=== PATIENT | female | born 1950 | race Caucasian/White ===

== ENCOUNTER 2025-03-15 08:23 | Outpatient (AMB) | payer MEDICARE, SELFPAY ==
--- OUTSIDE RECORDS SUMMARY | 2025-03-15 09:15 | XMS_ITS | Clinical Summary ---
Author Organization [facility] Address [address] [place] [address] Phone Care Team Providers Care Bacteriologist Dairy Name Role Phone Romaine Hudson MD Primary Care Provider [phone] Allergies Active Allergy Reactions Criticality Noted Date Comments Diclofenac Other High 05/23/2019 GI Bleed Morphine Other High 05/23/2019 GI Upset Medications atenoloL (TENORMIN) 25 mg tablet Take 0.5 tablets (12.5 mg total) by mouth 1 (one) time each day. TAKE 1/2 TABLET BY MOUTH DAILY Active multivit-minera ls/folic acid (CENTRUM ADULTS ORAL) Take 1 Tab by mouth daily. Active HYDROCODONE-MESERET TAMINOPHEN ORAL Take by mouth as needed. Active celecoxib (CeleBREX) 200 mg capsule Take 1 Capsule by mouth 2 times daily Active blood pressure test kit-large kit 1 Units by Does not apply route daily. Active acetaminophen (TYLENOL) 325 mg tablet Take 650 mg by mouth every 6 hours as needed. Active sertraline (ZOLOFT) 100 mg tablet Take 1 tablet (100 mg total) by mouth 1 (one) time each day. 90 tablet 08/17/2024 Active lisinopril-hydr oCHLOROthiazide (PRINZIDE,ZESTO RETIC) 20-12.5 mg per tablet Take 1 tablet by mouth 1 (one) time each day. Take 1 Tablet by mouth daily for 180 days. 90 tablet 09/21/2024 Active pravastatin (PRAVACHOL) 40 mg tablet Take 1 tablet (40 mg total) by mouth at bedtime. 90 tablet 09/21/2024 Active levothyroxine (SYNTHROID, LEVOTHROID) 125 mcg tablet Take 1 tablet by mouth daily on Sun, Tue, Thurs and Sat. 48 tablet 09/21/2024 Active levothyroxine (SYNTHROID, LEVOTHROID) 150 mcg tabletIndicatio ns:hypothyroidi sm Take 1 tablet by mouth daily on Mon, Wed, Fri 36 tablet 09/21/2024 Active Active Problems Problem Noted Date Diagnosed Date Anxiety and depression 04/12/2024 Essential (primary) hypertension 04/12/2024 Hypothyroidism 04/12/2024 Mixed hyperlipidemia 04/12/2024 OA (osteoarthritis) of neck 04/12/2024 OPAL (obstructive sleep apnea) 04/12/2024 Immunizations Name Administration Dates Next Due Influenza Quadravalent, 0.5m l (Fluzone High-dose) 65yo and older 06/09/2023 Influenza trivalent, 0.5mL ( Fluad) 65yo and older 05/02/2024 Influenza, Unspecified 04/07/2022,04/15/2021 Moderna SARS-CoV-2 COVID-19, mRNA, LNP-S, preservative free 06/09/2023,04/07/2022,04/24/2021 Pneumococcal Conjugate 06/02/2023 Pneumococcal conjugate 20 va lent (Prevnar 20, PCV 20) 2mo and older 05/02/2024 Tdap Tetanus diptheria acell ular pertussis (Boostrix; Adacel) 7yo and older 08/31/2023 Zoster recombinant (Shingrix ) 19yo and older 09/26/2020,09/05/2020 Surgical History Surgery Date Site/Laterality Comments BACK SURGERY PROCEDURE: HISTORICAL BACK SURGERY Medical History Medical History Date Comments Hypothyroidism DX:Hypothyroidis m Mixed hyperlipidemia DX:Mixed hy perlipidemia Anxiety and depression DX:Anxiet y and depression Essential (primary) hypertension DX:Essential (primary) hypertension OA (osteoarthritis) of neck DX:O A (osteoarthritis) of neck; COMMENT: shoulder and wrist OPAL (obstructive sleep apnea) DX :OPAL (obstructive sleep apnea) Family History Medical History Relation Name Comments Liver disease Brother 59 yo No Known Problems Daughter Lung cancer Father Alzheimer's disease Mother No Known Problems Sister No Known Problems Son 1 No Known Problems Son 2 Relation Name Status Comments Brother 59 yo Daughter Alive Father Mother Sister Alive Son 1 Alive Son 2 Alive Social History Tobacco Use Types Packs/Day Years Used Date Smoking Tobacco: Former Cigarettes Q uit: 06/22/2003 Smokeless Tobacco: Never Tobacco Cessation:Counseling Given: Not Answered Alcohol Use Standard Drinks/Week Comments Yes 0 (1 standard drink = 0.6 oz pur e alcohol) occasional Housing Instability Answer Date Recorde d Are you worried that in the next 2 months you may not have stable housing? No 05/01/2024 Food Access & Nutrition Answer Date Rec orded Do you have access to a vari ety of food including fruits and vegetables? Yes 05/01/2024 Access to Healthcare Answer Date Record ed Within the last 3 months, ho w many times did you visit the emergency department for your medical care? 0 05/01/2024 Health Literacy Answer Date Recorded How often do you need to hav e someone help you when you read instructions, pamphlets, or other written material from your doctor or pharmacy? Never 05/01/2024 Caregiver: How often do you need to have someone help you when you read instructions, pamphlets, or other written material from your doctor or pharmacy? Not on file 05/01/2024 Financial Risk Answer Date Recorded How hard is it for you to pa y for the very basics like food, housing, medical care, and air conditioning / heating? Not very hard 05/01/2024 Transportation Answer Date Recorded Has the lack of transportati on kept you from meetings, work, or from getting things needed for daily living? No Has the lack of transportati on kept you from medical appointments or from getting medications? No 05/01/2024 Social Isolation Answer Date Recorded How often do you feel lonely or isolated from th ose around you? Never 05/01/2024 Food Risk Answer Date Recorded Within the past 12 months we worried whether our food would run out before we got money to buy more. Never true 05/01/2024 Within the past 12 months th e food we bought just didn't last and we didn't have money to get more. Never true 05/01/2024 Dependent Care Answer Date Recorded Do you need help finding or paying for care for your loved ones. For example, summer child caregiver or elderly care for an older adult? No 05/01/2024 Education Answer Date Recorded Do you think completing more education or training, like finishing a GED, going to college, or learning a trade, would be helpful for you? No 05/01/2024 Employment and Income Answer Date Recor ded During the last four weeks, have you been actively looking for work? No 05/01/2024 Living Situation Answer Date Recorded What is your living situation? 1 07/01/2023 Comments No Sex and Gender Information Value Date Recorded Sex Assigned at Not on file Legal Sex Female 6:48 PM EST Gender Identity Not on file Sexual Orientation Not on file Obstetrics History Last Filed Vital Signs Vital Sign Reading Time Taken Comments Blood Pressure 134/88 05/06/2024 10:38 AM EST Pulse 71 05/06/2024 10:38 AM EST Temperature 36.6 C (97.8 F) 05/02/2024 8:49 AM EST Respiratory Rate - - Oxygen Saturation - - Inhaled Oxygen Concentration - - Weight 93.8 kg (206 lb 12.8 oz) 024 10:38 AM EST Height 157.5 cm (5' 2 ) 05/06/2024 10:3 8 AM EST Body Mass Index 37.82 05/06/2024 10:38 AM EST Plan of Treatment Health Maintenance Due Date Last Done Comments Breast Cancer Screening 1950 Zoster Vaccines (2 of 2) 11/21/2020 09/26/2020, 08/20 Hepatitis C Screening 06/01/2022 Osteoporosis Screening (Bone Density Screening) 06/01/2022 Depression Screening 06/22/2024 05/01/2024, 12/10/19 Falls Risk Assessment 12/09/2024 12/10/2023 Medicare Annual Wellness Visit 12/09/2024 12/10/2023 COVID-19 Vaccine ( season) 2025 06/09/2023, 04/07/2022, 04/24/2021, Additional history exists Influenza Vaccine (#1) 2025 , 06/09/2023, 04/07/2022, Additional history exists Hypertension/CHF/CAD Annual BMP Blood Test 03/30/2025 03/30/2024, 03/30/2024 Social Influencers of Health Screening 05/01/2025 05/01/2024 Cholesterol Screening (Lipid Panel) 08/30/2028 08/31/2023 Colorectal Cancer Screening: Colonoscopy 02/02/2033 02/02/2023 DTaP,Tdap,and Td Vaccines (2 - Td or Tdap) 08/30/2033 08/31/2023 RSV Immunization Adult Patients Completed 06/09/2023 Pneumococcal Vaccine: 50+ Years Completed 05/02/2024, 01/26/2020 HIB Vaccines Aged Out No longer eligi ble based on patient's age to complete this topic HPV Vaccines Aged Out No longer eligi ble based on patient's age to complete this topic Hepatitis A Vaccines Aged Out No long er eligible based on patient's age to complete this topic Hepatitis B Vaccines Aged Out No long er eligible based on patient's age to complete this topic IPV Vaccines Aged Out No longer eligi ble based on patient's age to complete this topic MMR Vaccines Aged Out No longer eligi ble based on patient's age to complete this topic Meningococcal ACWY Vaccine Aged Out N o longer eligible based on patient's age to complete this topic Meningococcal B Vaccine Aged Out No l onger eligible based on patient's age to complete this topic RSV Immunization Patients Under 20 months Aged Out No longer eligible based on patient's age to complete this topic Varicella Vaccines Aged Out No longer eligible based on patient's age to complete this topic Procedures Procedure Name Priority Date/Time Associated Diagnosis Comments ANNUAL BMP BLOOD TEST Routine 03/30/2024 DEPRESSION SCREENING Routine 12/10/2023 FALLS RISK ASSESSMENT Routine 12/10/2023 LIPID PANEL Routine 08/31/2023 COLONOSCOPY Routine 02/02/2023 from Last 3 Months or Most Recently Relevant to Health Maintenance Results * Annual BMP Blood Test (03/30/2024) Pathologist [facility] Annual BMP Blood Test abstracted [facility] Provider HEALTH MAINTENANCE Final Result * Falls Risk Assessment (12/10/2023) [facility] Falls Risk Assessment abstracted [facility] Provider HEALTH MAINTENANCE Final Result * Depression Screening (12/10/2023) Pathologist [facility] Depression Screening abstracted [facility] Provider HEALTH MAINTENANCE Final Result * (ABNORMAL) Lipid panel (08/31/2023) [facility] LDL/HDL Ratio 4 0 - 4 Triglycerides 211(A) 0 - 150 mg/dL Cholesterol 167 0 - 200 mg/dL HDL 42 >=40 mg/dL LDL Cholesterol 83 0 - 100 mg/dL Blood Venous blood specimen / Unknown Result [facility] Provider LAB BLOOD ORDERABLES Denisse l Result * Colonoscopy (02/02/2023) Pathologist [facility] Colonoscopy abstraced,no interpretation Anatomical Region Laterality Modality Other Result [facility] Provider HEALTH MAINTENANCE Final Result from Last 3 Months or Most Recently Relevant [id number] [employer] MEDICAID - [place] Care Teams Bacteriologist Dairy Relationship Specialty Start Date End Date Romaine Hudson MD [address] [place] [address] [address] [place], [place] PCP - General Internal Medicine 12/02/24
--- NOTE | 2025-03-15 13:35 | MHC.OFFVISWM ---
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 *BMI 36.4* Allergies morphine Allergy (Intermediate, Verified 03/15/25 13:38) Nausea and Vomiting diclofenac Adverse Reaction (Severe, Verified 03/15/25 13:38) Gastrointestinal Hemorrhage Medication List - Last Reconciled 03/15/25 by Jose Francisco Maurer MD atenolol 12.5 mg PO DAILY [b12 PO] celecoxib 200 mg PO BID hydrocodone-acetaminophen 5-325 mg 1 tab PO Q6H PRN levothyroxine 150 mcg PO DAILY levothyroxine 100 mcg PO DAILY lisinopril-hydrochlorothiazide 20-12.5 mg 1 tab PO DAILY magnesium aspart,citrate,oxide ONCE DAILY 400MG multivitamin with minerals (Hair,Skin and Nails tablet) 2 times a day orally; mv-mn-folic [id number] 357 240-150 mcg (Alive Women's 50 Plus Ultra Multivitamin) tabs PO .ONE TWICE A DAY pravastatin 40 mg PO DAILY sertraline 150 mg PO DAILY HPI HPI 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 *BMI 36.4*: Details: Start time: 1.30pm, End time: 2.10pm ?I spent 35 minutes speaking with the patient on the phone plus an additional 5 minutes reviewing and updating records for a total of 40 minutes HPI Comments Details: Previous weight loss efforts: Keto diet, intermittent fasting Wakes up: 6.30am, Sleeps: 11pm Breakfast: 8am (toast) Lunch: 1pm (yogurt, cottage cheese) Dinner: 6pm (cereal, cucumbers, cheese with crackers) Snacks: 10am (fruits), 4pm (fruits), 8pm (occ ice cream) Exercise: none Beverages: Coffee (2 cups/d with Stevia, creamer), Tea: none, Soda: none, Juice: none, ETOH: Wine x2/wk PFSH Medical History (Updated 03/15/25 @ 14:08 by Jose Francisco Maurer MD) BMI 36.0-36.9,adult Anxiety Depression Hyperlipidemia DJD (degenerative joint disease) Hypothyroidism Hypertension Obesity Surgical History (Updated 02/16/25 @ 10:47 by Rl Edge RN) History of colonoscopy History of back surgery History of shoulder replacement History of hip replacement Family History (Updated 02/15/25 @ 13:36 by Rl Edge RN) Mother No problems noted. Father No problems noted. Social History (Updated 02/15/25 @ 13:36 by Rl Edge RN) Alcohol intake: current Comment: 3 DRINKS A WEEK Patient Tobacco Use Status: Former Tobacco user Tobacco use type: Cigarette Cigarettes Per Day: 3 Years Smoked: QUIT 2003 Telehealth Telehealth Telehealth Platform: Telephone Location of provider rendering services: practice address Location of patient: address on file Patient Identification confirmed using: Name, : Yes Telehealth method: voice only Patient verbally consented to treatment: Yes Patient verbally consented to billing insurance company: Yes Patient informed of any privacy concerns related to visit: Yes Minutes spent on Phone/Video with Pt.: 40 Assessment & Plan Assessment & Plan (1) Obesity: Code(s): E66.9 - Obesity, unspecified Category: Medical Qualifiers: Obesity type: due to excess calories Obesity classification: adult class 2 (BMI 35 - 39.9) Serious obesity comorbidity presence: with serious comorbidity Body mass index: BMI 36.0-36.9 Qualified Code(s): E66.812 - Obesity, class 2; E66.01 - Morbid (severe) obesity due to excess calories; Z68.36 - Body mass index [BMI] 36.0-36.9, adult Plan: 1. As we discussed, based on your present BMI you are approximately 70lbs overweight. In my opinion, for any weight loss strategy to be successful should have a high probability to help you lose at least 60lbs out of 70lbs of the extra weight you carry. We discussed in detail the available therapeutic options: 1) our lifestyle intervention program that has an average weight loss of 10% in 3 months.?Some patients continue it for longer and have lost over 50lbs but this is not common. Our lifestyle program can be provided by me or by using our software guadalupe, the [employer] guadalupe. I will provide you with a link to use the guadalupe if you choose to do so. We use protein shakes and protein bars to replace some of the meals of the day and cover your appetite better. We will decide together the exact combination. 2) Weight loss medications (injections): these can be used in conjunction with our lifestyle program or you may choose to use them without following a lifestyle program from my program but your own. As we discussed, I will prescribe it to your insurance to see if it will be approved. The medication I use more often is called Zepbound and is one shot per week. My office will do the authorizations and we will train you how to use it properly. We also discussed that you can self pay for the first 3 months and the cost is $249 for the first month and $499 for any other month thereafter. These payments go to the drug company directly and not to us. 3) We also discussed about the lap sleeve gastrectomy. In my opinion this is the best option to solve your problem based on your situation and should be used in conjunction with the two previous options. A good strategy to make this decision to proceed with surgery, is to set some goals with the lifestyle intervention and medication options: If you don't lose at least 10lbs the first 6 weeks after starting the program or at least 10% in 3 months. ?I emphasized the importance of close follow-up, adherence to instructions and good communication. The surgery does not replace the need to change your lifestlyle which is the cause of the obesity problem. The surgery provides the motivation to try again to change your lifestyle, it reduces the appetite and make the transition to a better lifestyle easier and doubles the amount of weight you would lose compared to doing the lifestyle change without the surgery. You will need to be on a liquid diet with protein shakes for 2 weeks before surgery to maximize weight loss and boost your nutritional status to recover better from surgery and also for the first two weeks after surgery to let the stomach heal before we introduce other foods. After the first 2 weeks we will introduce protein bars and soft foods like scrambled eggs, cottage cheese and yogurt and after the 6th week will introduce meat, fish and cooked vegetables in small amounts. Over time you should be able to eat everything in small amounts. Side effects like nausea, vomiting, heartburn or abdominal pain are not common in the practice unless you are not following in the practice. This operation requires lifetime commitment to following in our practice and communication with me. You will much less weight and experience side effects if you don?t communicate or not following in the practice. Complications are rare and in our practice is about 1/10 of the national average. Medications: New tirzepatide (weight loss) (Zepbound) for 4 weeks 2.5 mg (0.5 mL) subcut QWEEK 2 mL 0RF E03.9 - Hypothyroidism, unspecified, E66.01 - Morbid (severe) obesity due to excess calories, E66.812 - Obesity, class 2, E78.5 - Hyperlipidemia, unspecified, I10 - Essential (primary) hypertension, Z68.36 - Body mass index [BMI] 36.0-36.9, adult
[2025-03-15 13:48] VITALS: BMI 36.3
== END 2025-03-15 14:10 | disposition home or self-care (01) ==
LOC: HO.HBS 08:23
PROVIDERS: PCP Internal Medicine; Visit Provider Surgery
DX: E66.9 Obesity, unspecified (principal); Z68.36 Body mass index [BMI] 36.0-36.9, adult
CPT/HCPCS: 98009